=== PATIENT | male | born 1950 ===

== ENCOUNTER → 2017-05-12 | Outpatient (CLI) | payer MEDICARE ==
[~2017-05-12] VITALS: Ht 172.7 cm; Wt 70.0 kg
[~2017-05-12] MED LIST: ATOR40TA28 PO; CARV12 PO; CLOP75 PO; FLUT16H NASAL; LOSA50TA37 PO; METF500T4 PO; TAMS0.4C32 PO; TIOT185 IH
[2017-05-12 13:15] VITALS: BP 160/77
== END | disposition home or self-care (01) ==
LOC: SRCNTR 13:10
PROVIDERS: ATTEND Internal Medicine
DX: J44.9 Chronic obstructive pulmonary disease, unspecified (principal); I10 Essential (primary) hypertension; I25.10 Atherosclerotic heart disease of native coronary artery without angina pectoris; E11.9 Type 2 diabetes mellitus without complications; C61 Malignant neoplasm of prostate; R09.02 Hypoxemia; Z85.46 Personal history of malignant neoplasm of prostate
CPT/HCPCS: G0463